=== PATIENT | male | born 1965 | race African-American/Black ===

== ENCOUNTER 2016-07-29 22:52 | Emergency (ER) | payer OTHER ==
[~2016-07-29] VITALS: Ht 170.2 cm; Wt 86.4 kg
[2016-07-29 23:21] LABS: POINT-OF-CARE METER ID UU13113778
[2016-07-29 23:42] LABS: MCHC 30.6 G/DL (30.0-36.0); MCV 75.2 FL (86-99); MEAN PLAT.VOLUME 9.7 uM^3 (9.0-12.4); PLATELET COUNT 225 K/uL (156-360); RBC DIS.WIDTH-SD 39.7 % (39-53); RED BLOOD COUNT 6.38 M/uL (4.00-5.50); WHITE BLOOD COUNT 6.2 K/uL (4.1-10.2)
[2016-07-29 23:54] LABS: CHLORIDE 103 mEq/L (99-109); POTASSIUM 3.9 mEq/L (3.7-5.4); SODIUM 142 mEq/L (136-147)
[2016-07-29 23:55] LABS: GLUCOSE 117 mg/dL (70-99)
[2016-07-29 23:57] LABS: ANION GAP 11 MEQ/L (2-14)
[2016-07-30] LABS: UREA NITROGEN (BUN) 14 mg/dL (9-23)
[2016-07-30 00:04] LABS: GFR ESTIMATE (CALCULATED) > 59 mL/min/; TROP-I INTERPRETATION NEGATIVE; TROPONIN-I < 0.01 ng/mL (0.0-0.30)
[2016-07-30] MEDS ORDERED: AUGMENTIN875 MG PO (00:09)
[2016-07-30 00:25] VITALS: BP 149/90
== END 2016-07-30 00:25 | disposition home or self-care (01) ==
LOC: EME 22:52
DX: J02.0 Streptococcal pharyngitis (principal); J20.9 Acute bronchitis, unspecified; R51 Headache; R42 Dizziness and giddiness
CPT/HCPCS: 71020; 80048; 82948; 84484; 85027; 93005; 99281; 99284

== ENCOUNTER → 2017-01-28 | Outpatient (CLI) | payer BC ==
[~2017-01-28] VITALS: Ht 170.2 cm; Wt 83.9 kg
[~2017-01-28] MED LIST: AUGMENTIN875 MG PO; PRINIVIL5 MG PO; PROTONIX40 MG PO; XIGDUO XR 5 MG1 EAC1 PO
[2017-01-28 09:41] LABS: POINT-OF-CARE METER ID UU14107333
== END | disposition home or self-care (01) ==
LOC: AMB 08:30
PROVIDERS: Internal Medicine
PROC: 0DBL8ZX Excision of Transverse Colon, Via Natural or Artificial Opening Endoscopic, Diagnostic (ICD-10-PCS; principal; 2017-01-28)
DX: Z12.11 Encounter for screening for malignant neoplasm of colon (principal); K63.5 Polyp of colon; K64.8 Other hemorrhoids; E11.9 Type 2 diabetes mellitus without complications; K21.9 Gastro-esophageal reflux disease without esophagitis; I10 Essential (primary) hypertension; Z87.891 Personal history of nicotine dependence
CPT/HCPCS: 82948; 88305; 93005; J2250